=== PATIENT | female | born 1995 | race Two or more races ===

== ENCOUNTER 2018-09-12 13:49 | Emergency (ER) | payer BC, MEDICAID ==
[2018-09-12 13:57] VITALS: BP 114/74
[2018-09-12] MEDS ORDERED: ACETAMINOPHEN 325 MG TABLET PO ONE (14:08)
--- NOTE | 2018-09-12 14:08 | ER Document Report ---
ED General - General Chief Complaint: OB Problem (<20wks) Stated Complaint: ABDOMINAL CRAMPING Time Seen by Provider: 09/12/18 14:03 Notes: Patient is a 22-year-old female that is , approximately 10-1/2 weeks gravid that presents to the emergency department for chief complaint of bilateral pelvic cramping, and low back pain. Patient reports that his symptoms started yesterday, with cramping, that she describes as a 2 out of 10 at this time, and going to the low back and extending lower. She states she also had some vaginal discharge, and spotting yesterday. She was recently diagnosed and treated for urinary tract infection. She describes a discharge as a white, clumping discharge. She reports she took Tylenol earlier this morning, without much relief of her pain. Denies having any associated chest pain, shortness of breath, difficulty breathing, nausea or vomiting today. Patient reports having confirmed intrauterine on ultrasound by the [facility]. Past Medical History: Denies chronic medical conditions Past Surgical History: Denies surgical history Social History: Denies tobacco, alcohol or drug use Family History: Reviewed and noncontributory for presenting illness Allergies: Reviewed, see documented allergy list. REVIEW OF SYSTEMS: Unless otherwise stated in this report the patient's positive and negative responses for review of systems for constitutional, eyes, ENT, cardiovascular, respiratory, gastrointestinal, neurological, genitourinary, musculoskeletal, and integumentary systems and related systems to the presenting problem are either as stated in the HPI or were not pertinent or were negative for the symptoms and/or complaints related to the presenting medical problem. PHYSICAL EXAMINATION: Vital signs reviewed, nursing noted reviewed. GENERAL: Well-appearing, well-nourished and in no acute distress. HEAD: Atraumatic, normocephalic. EYES: Eyes appear normal, extraocular movements intact, sclera anicteric, conjunctiva are normal. ENT: nares patent, oropharynx clear without exudates. Moist mucous membranes. NECK: Normal range of motion, supple without lymphadenopathy LUNGS: Breath sounds clear to auscultation bilaterally and equal. No wheezes rales or rhonchi. HEART: Regular rate and rhythm without murmurs ABDOMEN: Soft, nontender, normoactive bowel sounds. No rebound, guarding, or rigidity. No masses appreciated. EXTREMITIES: Nontender, good range of motion, no pitting or edema. NEUROLOGICAL: No focal neurological deficits. Moves all extremities spontaneously Motor and sensory grossly intact on exam. PSYCH: Normal mood, normal affect. SKIN: Warm, Dry, normal turgor, no rashes or lesions noted on exposed skin TRAVEL OUTSIDE OF THE [place] IN LAST 30 DAYS: No - Related Data Allergies/Adverse Reactions: No Known Allergies Allergy (Verified 09/12/18 13:52) Past Medical History - Social History Smoking Status: Never Smoker Chew tobacco use (# tins/day): No Frequency of alcohol use: None Drug Abuse: None Family History: Reviewed & Not Pertinent Patient has suicidal ideation: No Patient has homicidal ideation: No Renal/ Medical History: Denies: Hx Peritoneal Dialysis Physical Exam - Vital signs Vitals: Temp Pulse Resp BP Pulse Ox 97.8 F 87 14 114/74 99 09/12/18 13:56 09/12/18 13:56 09/12/18 13:56 09/12/18 13:56 09/12/18 13:56 Course - Re-evaluation Re-evalutation: Patient seen and examined vital signs reviewed. Laboratory data and imaging were ordered as appropriate for the patient's presenting symptoms and complaint, with consideration of any critical or life threatening conditions that may be associated with their obtained history and exam as noted above. Patient was treated with Tylenol, transvaginal ultrasound ordered, due to spotting, patient is O+, RhoGam is not indicated, urinalysis was ordered, HCG not ordered as patient has confirmed intrauterine . Results were reviewed when available and demonstrated 11 weeks live intrauterine , trace blood on the UA, but no evidence of urinary tract infection The patient was re-evaluated and was stable Evaluation was most consistent with vaginal bleeding in , spotting, vaginal cramping in Results were discussed with the patient at this point, after careful consideration I feel that that patient can be discharged from the emergency department, the patient was educated treatments and reasons to return to the emergency department based on their presumed diagnosis as noted above, they were advised to followup with a primary care physician in 2-3 days. Patient was agreeable to plan of care. *Note is created using voice recognition software and may contain spelling, syntax or grammatical errors. Laboratory 09/12/18 14:17 Urine Color COLORLESS Urine Appearance CLEAR Urine pH 6.0 Ur Specific Benedict 1.004 Urine Protein NEGATIVE Urine Glucose (UA) NEGATIVE Urine Ketones NEGATIVE Urine Blood SMALL H Urine Nitrite NEGATIVE Urine Bilirubin NEGATIVE Urine Urobilinogen NEGATIVE Ur Leukocyte Esterase NEGATIVE Urine WBC (Auto) 0 Urine RBC (Auto) 1 Squamous Epi Cells Auto <1 Urine Mucus (Auto) RARE Urine Ascorbic Acid NEGATIVE Obstetrics Ultrasound 09/12/18 14:07 IMPRESSION: LIVING INTRAUTERINE . EGA 11 weeks 0 days based on today's sonographic measurement Trimester of : First - 0 to 13 weeks. - Vital Signs Vital signs: Temp Pulse Resp BP Pulse Ox 97.8 F 87 14 114/74 99 09/12/18 13:56 09/12/18 13:56 09/12/18 13:56 09/12/18 13:56 09/12/18 13:56 - Laboratory Laboratory results interpreted by me: 09/12/18 14:17 Urine Blood SMALL H Discharge - Discharge Clinical Impression: Vaginal bleeding in patient at less than 20 weeks gestation, Vaginal candidiasis Condition: Stable Disposition: HOME, SELF-CARE Instructions: Bleeding During Early ([facility]), Vaginal Yeast Infection ( [facility]) Prescriptions: Miconazole Nitrate [Monistat 1] 1 each VG ONCE PRN #1 kit PRN Reason: Referrals: ZENY GALVEZ MD [Primary Care Provider] - Follow up as needed [facility] [Provider Group] - Follow up in 3-5 days
[2018-09-12 14:30] LABS: APPEARANCE,URINE CLEAR; BILIRUBIN,URINE NEGATIVE (NEGATIVE); COLOR,URINE COLORLESS; GLUCOSE, URINE NEGATIVE (NEGATIVE); KETONES,URINE NEGATIVE (NEGATIVE); LEUKOCYTE ESTERASE,URINE NEGATIVE (NEGATIVE); NITRITE,URINE NEGATIVE (NEGATIVE); PROTEIN,URINE NEGATIVE (NEGATIVE); URINE SPECIFIC GRAVITY 1.004; UROBILINOGEN,URINE NEGATIVE mg/dL (<2.0)
--- NOTE | 2018-09-12 15:09 | RADIOLOGY REPORT (SQ) ---
EXAM DESCRIPTION: U/S OB TRANSVAGINAL W/O DOP COMPLETED DATE/TIME: 09/12/2018 2:51 pm REASON FOR STUDY: pelvic pain, vaginal spotting, about 10-11wks grav COMPARISON: None. TECHNIQUE: Transabdominal static and realtime grayscale images acquired of the pelvis. Additional se lected spectral and color Doppler images recorded. All images stored on PACs. bHCG: Pending. CLINICAL DATES: 15 weeks 4 days LIMITATIONS: None. FINDINGS: FETUS: Single Living intrauterine . ULTRASOUND EGA: 11 weeks 0 days ULTRASOUND TRACE: 04/03/2018 EFW: Not applicable less than 20 weeks. CRL: 4.1 cm FHR: 169 beats per minute. SURVEY: Too early to assess. AMNIOTIC FLUID: Not quantitatively measured but appears subjectively adequate PLACENTA: Not yet developed due to early gestation. SUBCHORIONIC BLEED: No. SIZE OF BLEED: Not applicable. UTERUS: No masses. No anomalies. CERVICAL LENGTH: 2.5 cm Closed. RIGHT ADNEXA: Normal ovary with normal vascular flow. No adnexal free fluid. Slightly complex right ovarian cyst, likely representing a corpus luteum cyst. LEFT ADNEXA: Normal ovary with normal vascular flow. No adnexal free fluid. No adnexal masses. FREE FLUID: None. OTHER: No other significant finding. IMPRESSION: LIVING INTRAUTERINE . EGA 11 weeks 0 days based on today's sonographic measurement Trimester of : First - 0 to 13 weeks. TECHNICAL DOCUMENTATION: JOB ID: [id number] [employer]- All Rights Reserved rev Reading location - IP/workstation name: [email or web address]
== END 2018-09-12 15:28 | disposition home or self-care (01) ==
LOC: ER 13:49
DX: O98.819 Other maternal infectious and parasitic diseases complicating pregnancy, unspecified trimester (principal); B37.3 Candidiasis of vulva and vagina; O26.859 Spotting complicating pregnancy, unspecified trimester; O26.899 Other specified pregnancy related conditions, unspecified trimester; R10.2 Pelvic and perineal pain; O99.89 Other specified diseases and conditions complicating pregnancy, childbirth and the puerperium; M54.5 Low back pain; Z3A.00 Weeks of gestation of pregnancy not specified; Z87.440 Personal history of urinary (tract) infections
CPT/HCPCS: 76817; 81001; 87086; 99284

== ENCOUNTER 2018-11-11 10:02 | Emergency (ER) | payer BC ==
--- NOTE | 2018-11-11 11:00 | ER Document Report ---
ED Medical Screen (RME) - General TRAVEL OUTSIDE OF THE [place] IN LAST 30 DAYS: No - General Chief Complaint: Vomiting/Diarrhea Stated Complaint: VOMITING, DIARRHEA, CHILLS/SWEATS Time Seen by Provider: 11/11/18 10:57 Notes: 22-year-old female that is 19 weeks that presents to the emergency department today with complaints of vomiting and diarrhea with associated lightheadedness. Patient states this is her third . Patient states she had some nausea and vomiting early in but not like this. Patient states she has noticed some small blood streaks in her vomit recently but denies blood in her stool. Patient denies any dysuria or sick contacts. I have greeted and performed a rapid initial assessment of this patient. A comprehensive ED assessment and evaluation of the patient, analysis of test results, and completion of the medical decision making process will be conducted by additional ED providers. Review of systems Cardiovascular: Lightheaded. Gastrointestinal: Nausea and vomiting. Genitourinary: . Denies dysuria. PHYSICAL EXAM GENERAL: Alert, interacts well. No acute distress. HEAD: Normocephalic, atraumatic. EYES: Pupils equal, round, and reactive to light. Extraocular movements intact. ENT: Oral mucosa moist, tongue midline. NECK: Full range of motion. Supple. Trachea midline. LUNGS: No respiratory distress. ABDOMEN: Gravid EXTREMITIES: Moves all 4 extremities spontaneously. NEUROLOGICAL: Alert and oriented x3. Normal speech. PSYCH: Normal affect, normal mood. SKIN: Warm, dry, normal turgor. No rashes or lesions noted. ([facility]) - Related Data Allergies/Adverse Reactions: No Known Allergies Allergy (Verified 11/11/18 10:05) Past Medical History - Social History Chew tobacco use (# tins/day): No Frequency of alcohol use: None Drug Abuse: None Renal/ Medical History: Denies: Hx Peritoneal Dialysis - Vital signs Vitals: Temp Pulse Resp BP Pulse Ox 97.7 F 118 H 15 110/61 98 11/11/18 10:08 11/11/18 10:08 11/11/18 10:08 11/11/18 10:08 11/11/18 10:08 - Vital Signs Vital signs: Temp Pulse Resp BP Pulse Ox 97.7 F 118 H 15 110/61 98 11/11/18 10:08 11/11/18 10:08 11/11/18 10:08 11/11/18 10:08 11/11/18 10:08 Doctor's Discharge - Discharge Referrals: ZENY GALVEZ MD [Primary Care Provider] - Follow up as needed
[2018-11-11] MEDS ORDERED: NORMAL SALINE 1000 ML 1,000 ML IV ONE (11:01)
[2018-11-11] MEDS ORDERED: LOPERAMIDE HCL 2 MG CAPSULE PO ONE (11:01)
[2018-11-11] MEDS ORDERED: ONDANSETRON HCL INJ/PF 4 MG/2 ML SDV IV ONE (11:01)
[2018-11-11 12:18] LABS: HEMATOCRIT 36.5 % (36.0-47.0); HEMOGLOBIN 12.6 g/dL (12.0-15.5); MEAN CORPUSCULAR HEMOGLOBIN 29.9 pg (27.0-33.4); MEAN CORPUSCULAR HGB CONC 34.7 g/dL (32.0-36.0); MEAN CORPUSCULAR VOLUME 86 fl (80-97); PLATELET COUNT 251 10^3/uL (150-450); RED BLOOD COUNT 4.23 10^6/uL (3.72-5.28); RED CELL DISTRIBUTION WIDTH 13.7 % (11.5-14.0); WHITE BLOOD COUNT 14.8 10^3/uL (4.0-10.5)
[2018-11-11 12:31] LABS: ALANINE AMINOTRANSFERASE 22 U/L (9-52); ALBUMIN 4.7 g/dL (3.5-5.0); ALKALINE PHOSPHATASE 108 U/L (38-126); ANION GAP 11 (5-19); ASPARTATE AMINO TRANSFERASE 20 U/L (14-36); BILIRUBIN,DIRECT 0.2 mg/dL (0.0-0.4); BILIRUBIN,TOTAL 0.5 mg/dL (0.2-1.3); BLOOD UREA NITROGEN 13 mg/dL (7-20); CALCIUM 9.6 mg/dL (8.4-10.2); CARBON DIOXIDE 22 mmol/L (22-30); CHLORIDE 104 mmol/L (98-107); GLUCOSE 92 mg/dL (75-110); LIPASE 50.3 U/L (23-300); SODIUM 136.8 mmol/L (137-145); TOTAL PROTEIN 8.3 g/dL (6.3-8.2)
[2018-11-11 12:35] LABS: A TYPE INFLUENZA AG NEGATIVE (NEGATIVE); B INFLUENZA AG NEGATIVE (NEGATIVE)
[2018-11-11 12:57] LABS: ABSOLUTE LYMPHOCYTES# (MANUAL) 0.7 10^3/uL (0.5-4.7); ABSOLUTE MONOCYTES # (MANUAL) 0.4 10^3/uL (0.1-1.4); ABSOLUTE NEUTROPHILS# (MANUAL) 13.6 10^3/uL (1.7-8.2); BAND NEUTROPHILS % (MANUAL) 1 % (3-5); BASOPHILS % (MANUAL) 0 % (0-2); EOSINOPHILS % (MANUAL) 0 % (0-6); LYMPHOCYTES % (MANUAL) 3 % (13-45); MONOCYTES % (MANUAL) 3 % (3-13); SEGMENTED NEUTROPHILS % (MAN) 91 % (42-78); TOTAL CELLS COUNTED 100
[2018-11-11 12:58] LABS: PLATELET COMMENT ADEQUATE; POLYCHROMASIA SLIGHT; TOXIC GRANULATION SLIGHT
[2018-11-11 14:07] VITALS: BP 98/58
--- NOTE | 2018-11-11 14:15 | ER Document Report ---
ED General - General Chief Complaint: Vomiting/Diarrhea Stated Complaint: VOMITING, DIARRHEA, CHILLS/SWEATS Time Seen by Provider: 11/11/18 10:57 Mode of Arrival: Ambulatory Information source: Patient TRAVEL OUTSIDE OF THE [place] IN LAST 30 DAYS: No - HPI Patient complains to provider of: Nausea vomiting Onset: Other - 22-year-old female presents for evaluation of persistent nausea and vomiting in the setting of . Through triage she had antiemetics ordered as well as fluids. She currently states that she does not have much nausea she has been having some vomiting but has been able to tolerate p.o. since initially arriving. She denies fevers, chills, diarrhea constipation dysuria does endorse that she has had profound nausea for which she is presented without any fevers. She did have pain associated with it in her abdomen which she thinks is from all of the vomiting and there were some streaks of blood in it earlier today. - Related Data Allergies/Adverse Reactions: No Known Allergies Allergy (Verified 11/11/18 10:05) Past Medical History - General Information source: Patient - Social History Smoking Status: Never Smoker Chew tobacco use (# tins/day): No Frequency of alcohol use: None Drug Abuse: None Family History: Reviewed & Not Pertinent Patient has suicidal ideation: No Patient has homicidal ideation: No Renal/ Medical History: Denies: Hx Peritoneal Dialysis Review of Systems - Review of Systems -: Yes All other systems reviewed and negative Physical Exam - Vital signs Vitals: Temp Pulse Resp BP Pulse Ox 97.7 F 118 H 15 110/61 98 11/11/18 10:08 11/11/18 10:08 11/11/18 10:08 11/11/18 10:08 11/11/18 10:08 Interpretation: Normal - General General appearance: Appears well, Alert - HEENT Head: Normocephalic, Atraumatic Eyes: Normal Pupils: PERRL - Respiratory Respiratory status: No respiratory distress Chest status: Nontender Breath sounds: Normal Chest palpation: Normal - Cardiovascular Rhythm: Regular Heart sounds: Normal auscultation Murmur: No - Abdominal Inspection: Normal Distension: No distension Bowel sounds: Normal Tenderness: Nontender Organomegaly: No organomegaly - Back Back: Normal, Nontender - Extremities General upper extremity: Normal inspection, Nontender, Normal color, Normal ROM, Normal temperature General lower extremity: Normal inspection, Nontender, Normal color, Normal ROM, Normal temperature, Normal weight bearing. No: Keysha's sign - Neurological Neuro grossly intact: Yes Cognition: Normal Orientation: AAOx4 Grace Coma Scale Eye Opening: Spontaneous Nebo Coma Scale Verbal: Oriented Grace Coma Scale Motor: Obeys Commands Grace Coma Scale Total: 15 Speech: Normal Motor strength normal: LUE, RUE, LLE, RLE Sensory: Normal - Psychological Associated symptoms: Normal affect, Normal mood - Skin Skin Temperature: Warm Skin Moisture: Dry Skin Color: Normal Course - Re-evaluation Re-evalutation: 22-year-old female presents for vomiting. This woman is been able to tolerate p.o. well in the emergency department since receiving antiemetics. Her abdominal examination is reassuring. She is well-appearing, able to tolerate p.o. Her heart rate was modestly elevated upon arrival and it has improved with the administration of fluids in the emergency department. She is to follow-up with OB in the coming days, she will be given a brief prescription for antiemetics. We did discuss the risks and benefits related to and anti-emetics including the risk for cleft palate related to Zofran she stated that this is what is helped the most in the past. - Vital Signs Vital signs: Temp Pulse Resp BP Pulse Ox 97.9 F 108 H 16 98/58 L 100 11/11/18 14:22 11/11/18 14:22 11/11/18 14:22 11/11/18 14:22 11/11/18 14:22 - Laboratory Result Diagrams: 11/11/18 11:40 11/11/18 11:40 Laboratory results interpreted by me: 11/11/18 11/11/18 11:40 11:40 WBC 14.8 H Seg Neuts % (Manual) 91 H Band Neutrophils % 1 L Lymphocytes % (Manual) 3 L Abs Neuts (Manual) 13.6 H Sodium 136.8 L Creatinine 0.38 L Total Protein 8.3 H Discharge - Discharge Clinical Impression: Nausea & vomiting Qualifiers: Vomiting type: unspecified Vomiting Intractability: unspecified Qualified Code(s): R11.2 - Nausea with vomiting, unspecified Diarrhea Qualifiers: Diarrhea type: unspecified type Qualified Code(s): R19.7 - Diarrhea, unspec ified Condition: Good Disposition: HOME, SELF-CARE Instructions: Antinausea Medication ([facility]), Diarrhea, Nonspecific ([facility]), Vomiting ([facility]) Additional Instructions: You were seen today in the emergency department for your vomiting as well as diarrhea. You had an evaluation including a physical exam, administration of medications and blood work. It looks like you are a little dehydrated because of your vomiting and diarrhea. You have been given a medication to help with your vomiting. Use it only as needed. Please return in case you have any worsening fevers or chills inability to eat or drink or feel as if you are dehydrated. Drink Pedialyte and Gatorade to make sure that you are staying hydrated. Make sure you are peeing at least once every 12 hours. Prescriptions: Ondansetron [Zofran Odt 4 mg Tablet] 1 - 2 tab PO Q4H PRN #15 tab.rapdis PRN Reason: For Nausea/Vomiting Referrals: ZENY GALVEZ MD [ACTIVE STAFF] - Follow up as needed
== END 2018-11-11 14:22 | disposition home or self-care (01) ==
LOC: ER 10:02
DX: O21.9 Vomiting of pregnancy, unspecified (principal); R19.7 Diarrhea, unspecified; R68.83 Chills (without fever); R10.9 Unspecified abdominal pain; Z3A.19 19 weeks gestation of pregnancy
CPT/HCPCS: 99284; 96361; 96374; 36415; 83690; 85025; 80053; 87804; J2405; J7030

== ENCOUNTER 2019-03-09 11:13 | Outpatient (CLI) | payer BC, OTHER ==
--- NOTE | 2019-03-09 12:01 | Non Stress Test Report ---
Non Stress Test Datetime Report Generated by CPN: 03/09/2019 12:01 DEMOGRAPHIC Test Number: 1 EGA NST: 35.6 INDICATION Indication for Study: Ordered by Provider Indication for Study (NST) Other: repeat from office GDM MONITORING Monitor Explained: Monitor Explained; Test Explained; Patient Verbalized Understanding Time on Monitor: 03/09/2019 11:22 Time off Monitor: 03/09/2019 11:45 NST Duration: 23 NST INTERVENTIONS NST Interventions: Reposition Patient Physician Notified NST: A Reynolds CNM BABY A: [id number] BABY A Movement : Present Contraction Frequency : rare FHR Baseline : 125 Accelerations : 15X15 Decelerations : None Variability : Moderate 6-25bpm NST Review: Meets Criteria for Reactive NST NST Review and Verified By : JULIOCESAR Hou Results: Reactive NST REPORT Report Trigger: Send Report
== END 2019-03-09 11:48 | disposition home or self-care (01) ==
LOC: LC 11:13
PROVIDERS: ATTEND Obstetrics & Gynecology
PROC: 4A1HXCZ Monitoring of Products of Conception, Cardiac Rate, External Approach (ICD-10-PCS; principal; 2019-03-09)
DX: O24.415 Gestational diabetes mellitus in pregnancy, controlled by oral hypoglycemic drugs (principal); Z3A.35 35 weeks gestation of pregnancy
CPT/HCPCS: 59025

== ENCOUNTER 2019-03-27 19:28 | Outpatient (CLI) | payer BC, OTHER ==
--- NOTE | 2019-03-27 21:47 | Non Stress Test Report ---
Non Stress Test Datetime Report Generated by CPN: 03/27/2019 21:47 DEMOGRAPHIC EGA NST: 38.3 INDICATION Indication for Study: Ordered by Provider MONITORING Monitor Explained: Monitor Explained; Test Explained; Patient Verbalized Understanding Time on Monitor: 03/27/2019 19:38 Time off Monitor: 03/27/2019 20:43 NST Duration: 65 NST INTERVENTIONS NST Interventions: PO Hydration Physician Notified NST: Dr. Colunga-Jonas BABY A: [id number] BABY A Movement : Present Contraction Frequency : 3-7 FHR Baseline : 135 Accelerations : 15X15 Decelerations : None Variability : Moderate 6-25bpm NST Review: Meets Criteria for Reactive NST NST Review and Verified By : JULIOCESAR Olvera Results: Reactive NST REPORT Report Trigger: Send Report
[2019-03-27 21:59] LABS: APPEARANCE,URINE CLOUDY; BILIRUBIN,URINE NEGATIVE (NEGATIVE); COLOR,URINE YELLOW; GLUCOSE, URINE >=500 mg/dL (NEGATIVE); KETONES,URINE NEGATIVE (NEGATIVE); LEUKOCYTE ESTERASE,URINE LARGE (NEGATIVE); NITRITE,URINE NEGATIVE (NEGATIVE); PROTEIN,URINE NEGATIVE (NEGATIVE); URINE SPECIFIC GRAVITY 1.014; UROBILINOGEN,URINE NEGATIVE mg/dL (<2.0)
[2019-03-27 22:19] LABS: URINE AMPHETAMINES SCREEN NEGATIVE; URINE BARBITURATES SCREEN NEGATIVE; URINE BENZODIAZEPINES SCREEN NEGATIVE; URINE COCAINE SCREEN NEGATIVE; URINE MARIJUANA (THC) SCREEN NEGATIVE; URINE METHADONE SCREEN NEGATIVE; URINE PHENCYCLIDINE SCREEN NEGATIVE
== END 2019-03-27 20:50 | disposition home or self-care (01) ==
LOC: LC 19:28
PROVIDERS: ATTEND Obstetrics & Gynecology
PROC: 4A1HXCZ Monitoring of Products of Conception, Cardiac Rate, External Approach (ICD-10-PCS; principal; 2019-03-27)
DX: O47.1 False labor at or after 37 completed weeks of gestation (principal); Z3A.38 38 weeks gestation of pregnancy
CPT/HCPCS: 59025; 80307; 81005

== ENCOUNTER 2019-03-30 14:17 | Outpatient (CLI) | payer BC, OTHER ==
--- NOTE | 2019-03-30 15:23 | Non Stress Test Report ---
Non Stress Test Datetime Report Generated by CPN: 03/30/2019 15:22 DEMOGRAPHIC Test Number: 3 EGA NST: 38.6 INDICATION Indication for Study: Ordered by Provider MONITORING Monitor Explained: Monitor Explained; Test Explained; Patient Verbalized Understanding Time on Monitor: 03/30/2019 14:30 Time off Monitor: 03/30/2019 14:53 NST Duration: 23 NST INTERVENTIONS NST Interventions: PO Hydration Physician Notified NST: NMirela Padilla, CNM BABY A: [id number] BABY A Movement : Present Contraction Frequency : infreqent FHR Baseline : 130 Accelerations : 15X15 Decelerations : None Variability : Moderate 6-25bpm NST Review: Meets Criteria for Reactive NST NST Review and Verified By : Suzette Camp RNC NST Results: Reactive NST REPORT Report Trigger: Send Report
== END 2019-03-30 15:07 | disposition home or self-care (01) ==
LOC: LC 14:17
PROVIDERS: ATTEND Obstetrics & Gynecology
PROC: 4A1HXCZ Monitoring of Products of Conception, Cardiac Rate, External Approach (ICD-10-PCS; principal; 2019-03-30)
DX: O47.1 False labor at or after 37 completed weeks of gestation (principal); Z3A.38 38 weeks gestation of pregnancy
CPT/HCPCS: 59025

== ENCOUNTER 2019-03-31 07:01 | Inpatient (IN) | payer OTHER, BC ==
[2019-03-31] MEDS ORDERED: LIDOCAINE 1% INJ-PF (10 MG/ML) 30 ML SDV ONE (07:18)
[2019-03-31] MEDS ORDERED: OXYTOCIN/NORMAL SALINE 20 UNIT/1,000 ML RTUINJ ONE (07:18)
[2019-03-31] MEDS ORDERED: MISOPROSTOL 0.2 MG TABLET ONE (07:18)
[2019-03-31] MEDS ORDERED: OXYTOCIN 10 UNIT/ML VIAL ONE (07:18)
[2019-03-31] MEDS: RINGERS SOLUTION,LACTATED 1,000 ML IV PRN ×2 (07:37→11:32)
[2019-03-31] MEDS ORDERED: RINGERS SOLUTION,LACTATED 1,000 ML IV ONE (08:25)
[2019-03-31 08:51] LABS: APPEARANCE,URINE SLIGHTLY-CLOUDY; BILIRUBIN,URINE NEGATIVE (NEGATIVE); COLOR,URINE YELLOW; GLUCOSE, URINE 50 mg/dL (NEGATIVE); KETONES,URINE NEGATIVE (NEGATIVE); LEUKOCYTE ESTERASE,URINE SMALL (NEGATIVE); NITRITE,URINE NEGATIVE (NEGATIVE); PROTEIN,URINE NEGATIVE (NEGATIVE); URINE SPECIFIC GRAVITY 1.024; UROBILINOGEN,URINE NEGATIVE mg/dL (<2.0)
--- NOTE | 2019-03-31 09:13 | Admission Physical ---
Datetime Report Generated by CPN: 03/31/2019 09:13 CURRENT ADMISSION Chief Complaint: Scheduled Induction of Labor Indication for Induction: Maternal Diabetes Admit Impression : Term, Intrauterine Admit Plan: Admit to Unit; Initiate Labor Induction Protocol ALLERGIES Medication Allergies: Unknown Medication Allergies: No Known Allergies (03/27/2019) Latex: Unknown Food Allergies: None Environmental Allergies: None OBSTETRICAL HISTORY EDC: 04/07/2019 00:00 : 3 Para: 2 Term: 2 : 0 SAB: 0 IAB: 0 Ectopic: 0 Livin Cesareans: 0 VBACs: 0 Multiple Births: 0 Gestational Diabetes: Yes Rh Sensitization: No Incompetent Cervix: No JENNIFER: No Infertility: No ART Treatment: No Uterine Anomaly: No IUGR: No Hx Previous C/S: No Macrosomia: No Hx Loss/Stillborn: No PIH: No Hx : No Placenta Previa/Abruption: No Depression/PP Depression: No PTL/PROM: No Post Hemorrhage: No Current Procedures: Ultrasound; NST Obstetrical History Comments: G1: 2010 at 37 weeks, 5lbs 7oz male G2: 2015 at 40 weeks, 7lbs 14oz male, induced for distress G3: current SEE RECORDS Alcohol: No Marijuana : No Cocaine: No Other Illicit Drugs: No Cigarettes: Former Smoker. 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: No Heart Disease: No Hosp/Surgery: Yes Autoimmune Disorder: No Anesthetic Complications: No Kidney Disease: No Abnormal Pap Smear: No Neuro/Epilepsy: No Psychiatric Disorders: No Other Medical Diseases: No Hepatitis/Liver Disease: No Significant Family History: No Varicosities/Phlebitis: No Trauma/Violence : No Thyroid Dysfunction: No Medical History Comments: Hospitalization childbirth, INFECTIOUS HISTORY Gonorrhea: No Genital Herpes: No Chlamydia: Yes Tuberculosis: No Syphilis: No Hepatitis: No HIV/AIDS Exposure: No Rash or Viral Illness: No HPV: No Infectious History Comments: Chlamydia 2010 PHYSICAL EXAM General: Normal Heart: Normal Lungs: Normal Extremities: Normal Pelvic Type: Adequate Physical Exam Comments: pelvis proven to 7lbs 14oz cervical exam by Mario Mata GERONIMO 03/31/19 Vital Signs: Reviewed; Within Normal Limits VAGINAL EXAM Dilatation: 4-5 Effacement: 50 Station: -2 Contraction Comments: irregular MEMBRANES Membranes: Intact FETUS A EGA: 39.0 Monitoring: External US FHR Category: Category I Presentation: Vertex Admit Comment: 23yo @ 39wga into L_D for 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 Pt is O pos, GBS neg, rubella immune. Admitted this am awaiting on lab draw and about to start pitocin at this time. No significant medical hx except for chlamydia in 2010. PLANS FOR LABOR AND DELIVERY Labor and Delivery: None Pain Management: Natural Feeding Preference: Breast Benefit of Breast Feed Discussed: Yes Circumcision: Yes INFORMED CONSENT Assignment: Dina Pelaez MD Signature: with User ID: Treva : with User ID: [email or web address]
[2019-03-31 09:21] LABS: URINE AMPHETAMINES SCREEN NEGATIVE; URINE BARBITURATES SCREEN NEGATIVE; URINE BENZODIAZEPINES SCREEN NEGATIVE; URINE COCAINE SCREEN NEGATIVE; URINE MARIJUANA (THC) SCREEN NEGATIVE; URINE METHADONE SCREEN NEGATIVE; URINE PHENCYCLIDINE SCREEN NEGATIVE
[2019-03-31 09:53] LABS: ABSOLUTE LYMPHOCYTES (AUTO) 1.1 10^3/uL (0.5-4.7); ABSOLUTE MONOCYTES (AUTO) 0.4 10^3/uL (0.1-1.4); ABSOLUTE NEUT (AUTO) 4.4 10^3/uL (1.7-8.2); BASOPHILS % (AUTO) 0.2 % (0-2); EOSINOPHILS % (AUTO) 0.4 % (0-6); HEMATOCRIT 32.9 % (36.0-47.0); LYMPHOCYTES % (AUTO) 17.8 % (13-45); MEAN CORPUSCULAR HGB CONC 33.4 g/dL (32.0-36.0); MEAN CORPUSCULAR VOLUME 78 fl (80-97); PLATELET COUNT 181 10^3/uL (150-450); RED BLOOD COUNT 4.22 10^6/uL (3.72-5.28); RED CELL DISTRIBUTION WIDTH 15.3 % (11.5-14.0); SEGMENTED NEUTROPHILS % (AUTO) 74.6 % (42-78); TOTAL CELLS COUNTED % (AUTO) 100 %
[2019-03-31] MEDS ORDERED: ACETAMINOPHEN 325 MG TABLET PO PRN (12:55)
[2019-03-31] MEDS ORDERED: PSEUDOEPHEDRINE HCL 30 MG TABLET PO PRN (12:55)
[2019-03-31] MEDS ORDERED: MEASLES,MUMPS&RUBELLA VACC/PF 0.5 ML VIAL SUBCUT PRN (12:55)
[2019-03-31] MEDS ORDERED: DIBUCAINE 1% OINTMENT 56 GM TP PRN (12:55)
[2019-03-31] MEDS ORDERED: DIPHENHYDRAMINE HCL 25 MG CAPSULE PO PRN (12:55)
[2019-03-31] MEDS ORDERED: ZOLPIDEM TARTRATE 5 MG TABLET PO PRN (12:55)
[2019-03-31] MEDS ORDERED: MAGNESIUM HYDROXIDE SUSP 30 ML UDCUP PO PRN (12:55)
[2019-03-31] MEDS ORDERED: DIPH/PERTUSS(ACELL)/TETANUS VAC/PF 0.5 ML SYR (>=10YO) IM PRN (12:55)
[2019-03-31] MEDS ORDERED: ACETAMINOPHEN WITH CODEINE #3 TABLET PO PRN ×2 (12:55)
[2019-03-31] MEDS ORDERED: GLYCERIN/WITCH HAZEL LEAF 1 EACH MED..WIPE TP PRN (12:55)
[2019-03-31] MEDS ORDERED: NA PHOS,M-B/NA PHOS,DI-BA (ADULT) 133 ML ENEMA PR PRN (12:55)
[2019-03-31] MEDS ORDERED: PROMETHAZINE HCL 25 MG SUPP.RECT PR PRN (12:55)
[2019-03-31] MEDS ORDERED: OXYTOCIN/NORMAL SALINE 20 UNIT/1,000 ML RTUINJ IV PRN (12:55)
[2019-03-31] MEDS ORDERED: BENZOCAINE/MENTHOL AEROSOL SPRAY 56 ML TOP PRN (12:55)
[2019-03-31] MEDS ORDERED: PROMETHAZINE HCL 25 MG TABLET PO PRN (12:55)
[2019-03-31] MEDS ORDERED: PROMETHAZINE HCL INJ 25 MG/1 ML VIAL IV PRN (12:55)
[2019-03-31] MEDS ORDERED: ACETAMINOPHEN WITH CODEINE #3 TABLET ONE (13:30)
[2019-03-31] MEDS ORDERED: IBUPROFEN 800 MG TABLET ONE (14:15)
[2019-03-31] MEDS: IBUPROFEN 800 MG TABLET PO SCH ×2 (14:17→21:58)
[2019-03-31] MEDS: FERROUS SULFATE 325 MG TABLET PO SCH (18:20)
[2019-03-31] MEDS: DOCUSATE SODIUM 100 MG CAPSULE PO SCH (18:20)
--- NOTE | 2019-03-31 18:49 | Delivery Summary ---
Del Sum A-C Datetime Report Generated by CPN: 03/31/2019 18:48 DELIVERY PERSONNEL DELIVERY PERSONNEL: [id number] Delivery Doctor:: Leola Ochoa CNM Nurse Pug Mill Operator Helper Certified:: Leola Ochoa CNM Labor and Delivery Nurse:: Hugo Mckinnon RNstretching press operator Nurse:: BLAINE Eckert Guide Rail Cleaner/DIGITAL X RAY SERVICE ENGINEER: Dolly Juarez CST Guide Rail Cleaner/DIGITAL X RAY SERVICE ENGINEER: Yue Quinonez, ST Additional Personnel: : Katina Rob Window Framer MATERNAL INFORMATION Delivery Anesthesia: None Medications After Delivery: Pitocin Bolus-Please Comment Meds After Delivery Comment: Pitocin 20 units in 1000 ml nss open for bolus Maternal Complications: None Provider Comments: Pt with urge to push and found to be 8-9cm, breathing with a couple other contractions and on peanut ball. Urge became more unbearable and found to be c/c/+1. Started pushing and head was delivered without difficulty. However, patient stopped pushing with delivery of head and after much coaching body was delivered. Baby with vigorous respiratory effort and cry with tactile stimulation. Placed on maternal abdomen and cord allowed to stop pulsating then clamped x2 and cut by FOB, cord blood obtained (3vc noted). Placenta delivery spontaneously intact, vaginal and perineal inspection revealed no lacerations. Fundus firm and bleeidng stable. Mother and baby in room skin to skin and bonding at this time. LABOR SUMMARY EDC: 04/07/2019 00:00 No. Babies in Womb: 1 Attempted: No Labor Anesthesia: None LABOR INFORMATION Reason for Induction: Maternal Diabetes Onset of Labor: 03/31/2019 10:31 Complete Dilatation: 03/31/2019 12:50 Oxytocin: Induction Group B Beta Strep: Negative Steroids Given: None Reason Steroids Not Administered: Not Applicable MEMBRANES Membranes Rupture Method: Artificial Rupture of Membranes: 03/31/2019 10:31 Length of Rupture (hr): 2.60 Amniotic Fluid Color: Clear Amniotic Fluid Amount: Moderate Amniotic Fluid Odor: Normal STAGES OF LABOR Stage 1 hr: 2 Stage 1 min: 19 Stage 2 hr: 0 Stage 2 min: 17 Stage 3 hr: 0 Stage 3 min: 6 Total Time in Labor hr: 2 Total Time in Labor min: 42 VAGINAL DELIVERY Episiotomy: None Laceration #1: None Laceration Extension #1: N/A Other Laceration: n/a Laceration Repair: Not Applicable Sponge Count Correct: N/A Sharps Count Correct: N/A CSECTION DELIVERY Primary Indication: N/A Secondary Indication: N/A CSection Incidence: N/A Labor: N/A Elective: N/A CSection Incision: N/A BABY A INFORMATION Delivery Date/Time: 03/31/2019 13:07 Method of Delivery: Vaginal Born in Route : No : N/A Forceps: N/A Vacuum Extraction: N/A Shoulder Dystocia : No PRESENTATION/POSITION BABY A Presentation: Cephalic Cephalic Presentation: Vertex Vertex Position: Left Occipital Anterior Breech Presentation: N/A PLACENTA INFORMATION BABY A Placenta Delivery Time : 03/31/2019 13:13 Placenta Method of Delivery: Spontaneous Placenta Status: Delivered SCORES BABY A Heart Rate 1 min: >100 bpm Resp Effort 1 min: Slow, Irregular Reflex Irritability 1 min: Cough or Sneeze or Pulls Away Muscle Tone 1 min: Active Motion Color 1 min: Body Gideon, Extremities Blue Resuscitation Effort 1 min: Tactile Stimulation SCORE 1 MIN: 8 Heart Rate 5 min: >100 bpm Resp Effort 5 min: Good Cry Reflex Irritability 5 min: Cough or Sneeze or Pulls Away Muscle Tone 5 min: Active Motion Color 5 min: Body Gideon, Extremities Blue Resuscitation Effort 5 min: N/A SCORE 5 MIN: 9 Resuscitation Effort 10 min: N/A INFORMATION BABY A Gestational Age at Delivery: 39.0 Gestational Status: Full Term- 39- 40.6 Weeks Outcome : Liveborn Condition : Stable Infant Sex: Male IDENTIFICATION BABY A Verification Date/Time: 03/31/2019 13:36 ID Band Number: [id number] Mother's Name Verified: Yes Infant RN Verifying Infant: TMirela Mckinnon, RN and D. Sprouce WEIGHT/LENGTH BABY A Infant Birthweight (gm): 4255 Weight (lb): 9 Infant Weight (oz): 6 Length (in): 21.50 Infant Length (cm): 54.61 CORD INFORMATION BABY A No. Cord Vessels: 3 Nuchal Cord : N/A Cord Blood Taken: Yes-For Eval (Mom's Blood Type - or O+) Suction: None ASSESSMENT BABY A Skin to Skin: Yes Skin to Skin Time (min): 60 BABY B INFORMATION : N/A SIGNATURES Assignment: Dina Pelaez MD Signature: with User ID: [email or web address] : with User ID: [email or web address]
[2019-03-31] MEDS: FAMOTIDINE 20 MG TABLET PO SCH (21:59)
[2019-04-01] MEDS: IBUPROFEN 800 MG TABLET PO SCH ×3 (05:13→21:10)
[2019-04-01 06:59] LABS: HEMATOCRIT 30.3 % (36.0-47.0); MEAN CORPUSCULAR HEMOGLOBIN 26.1 pg (27.0-33.4); MEAN CORPUSCULAR VOLUME 79 fl (80-97); PLATELET COUNT 173 10^3/uL (150-450); RED BLOOD COUNT 3.84 10^6/uL (3.72-5.28); RED CELL DISTRIBUTION WIDTH 15.1 % (11.5-14.0); WHITE BLOOD COUNT 6.7 10^3/uL (4.0-10.5)
[2019-04-01] MEDS: FERROUS SULFATE 325 MG TABLET PO SCH (10:16)
[2019-04-01] MEDS: SENNOSIDES/DOCUSATE 8.6-50 MG 1 EACH TABLET PO SCH (10:16)
[2019-04-01] MEDS: FAMOTIDINE 20 MG TABLET PO SCH ×2 (10:16→21:10)
[2019-04-01] MEDS: PRENATAL VITAMIN W DHA CAPSULE PO SCH (10:16)
[2019-04-01] MEDS: DOCUSATE SODIUM 100 MG CAPSULE PO SCH (10:17)
--- NOTE | 2019-04-01 11:55 | PDOC PROGRESS REPORT ---
Subjective-OB Progress Note for:: 04/01/19 Subjective: reports bleeding slowing, pain controlled with current meds. denies needs Physical Exam (OB) Vital Signs: Temp Pulse Resp BP Pulse Ox 97.6 F 76 16 110/62 100 03/31/19 20:28 04/01/19 07:54 04/01/19 07:54 04/01/19 07:54 04/01/19 07:54 Intake & Output 03/31/19 04/01/19 04/02/19 06:59 06:59 06:59 Intake Total 540 Balance 540 Weight 76.7 kg - Abdomen Description: Soft Hernia Present: No Fundal Description: Firm, Midline Fundal Height: u/u - u/2 - Abdominal Distension: No distension Tenderness: Nontender - Extremities Lower extremities: Keysha's sign - neg Calf: Normal, Nontender Objective-Diagnostic Laboratory: 04/01/19 06:48 04/01/19 06:48 WBC 6.7 RBC 3.84 Hgb 10.0 L Hct 30.3 L MCV 79 L MCH 26.1 L MCHC 33.0 RDW 15.1 H Plt Count 173 Assessment and Plan(PN) - Assessment and Plan (1) Encounter for induction of labor Is this a current diagnosis for this admission?: Yes (2) Gestational diabetes mellitus (GDM) controlled on oral hypoglycemic drug Is this a current diagnosis for this admission?: Yes (3) Vaginal delivery Is this a current diagnosis for this admission?: Yes - Time Spent with Patient Time with patient: Less than 15 minutes - Disposition Anticipated Discharge: Home Within: within 24 hours
[2019-04-02] MEDS: IBUPROFEN 800 MG TABLET PO SCH ×2 (06:20→14:27)
[2019-04-02 09:17] VITALS: BP 108/65
--- NOTE | 2019-04-02 10:04 | PDOC DISCHARGE SUMMARY ---
Final Diagnosis Discharge Date: 04/02/19 - PP Day #2, doing well, O+, c/o increased nasal congestion and that her checks were feeling swollen. No itching, hives or SOB. Pt states she feels like she might be getting a cold. - Final Diagnosis (1) Normal course Is this a current diagnosis for this admission?: Yes (2) Encounter for induction of labor Is this a current diagnosis for this admission?: Yes (3) Gestational diabetes mellitus (GDM) controlled on oral hypoglycemic drug Is this a current diagnosis for this admission?: Yes (4) Vaginal delivery Is this a current diagnosis for this admission?: Yes Discharge Data - Discharge Medication Prescriptions: Ibuprofen [Motrin 800 mg Tablet] 800 mg PO Q8 #60 tablet Home Medications: Multivitamin [Multivitamins] 1 tab PO DAILY 11/11/18 Ibuprofen [Motrin 800 mg Tablet] 800 mg PO Q8 #60 tablet 04/02/19 Reason(s) for Admission: Induction of Labor, Gestional Diabetes Procedures: NST, Ultrasound Intrapartum Procedure(s): Spontaneous Vaginal Delivery Complication(s): Laceration-Vaginal, Other - superficial - Diagnosis Test Laboratory: Temp Pulse Resp BP Pulse Ox 97.9 F 75 17 108/65 100 04/02/19 08:18 04/02/19 08:18 04/02/19 08:18 04/02/19 08:18 04/02/19 08:18 03/31/19 03/31/19 04/01/19 07:24 09:34 06:48 RBC 4.22 3.84 Hgb 11.0 L 10.0 L Hct 32.9 L 30.3 L Urine Opiates Screen NEGATIVE - Discharge information/Instructions Discharge Activity: Activity As Tolerated, No Lifting Over 10 Pounds, Pelvic Rest Discharge Diet: As Tolerated, Regular Disposition: HOME, SELF-CARE Follow up with: [facility] in: 4, Weeks
[2019-04-02] MEDS: PRENATAL VITAMIN W DHA CAPSULE PO SCH (10:14)
[2019-04-02] MEDS: DOCUSATE SODIUM 100 MG CAPSULE PO SCH ×2 (10:14→14:36)
[2019-04-02] MEDS: FAMOTIDINE 20 MG TABLET PO SCH (10:14)
[2019-04-02] MEDS: SENNOSIDES/DOCUSATE 8.6-50 MG 1 EACH TABLET PO SCH (10:14)
[2019-04-02] MEDS: FERROUS SULFATE 325 MG TABLET PO SCH ×2 (10:14→14:36)
== END 2019-04-02 14:51 | disposition home or self-care (01) | DRG 807 ==
LOC: LR 07:01 → 2S 17:31
PROVIDERS: ADMIT Student in an Organized Health Care Education/Training Program; ATTEND Student in an Organized Health Care Education/Training Program
PROC: 10E0XZZ Delivery of Products of Conception, External Approach (ICD-10-PCS; principal; 2019-03-31)
DX: O24.425 Gestational diabetes mellitus in childbirth, controlled by oral hypoglycemic drugs (principal); Z37.0 Single live birth; Z3A.39 39 weeks gestation of pregnancy
CPT/HCPCS: 36415; 80307; 81005; 82962; 85025; 85027; 86592; 86850; 86900; 86901; J2590; J3490